=== PATIENT | female | born 1975 | race Caucasian/White ===

== ENCOUNTER 2018-03-22 20:52 | Emergency (ER) | payer OTHER ==
[2018-03-22 20:57] VITALS: BP 167/96
[2018-03-22] MEDS ORDERED: LEVO-3 PO (21:00)
--- NOTE | 2018-03-22 21:01 | ER Report ---
History and Physical Time Seen By MD: 20:59 HPI/ROS CHIEF COMPLAINT: Fever, sinus congestion, headache HISTORY OF PRESENT ILLNESS: 42-year-old female has been sick for 3-4 days with viral URI symptoms. She thinks she has a sinus infection. She's been feeling much worse over the last 24 hours. She is here from [place], [place] for a family reunion. She notes purulent green nasal drainage. She notes intermittent low-grade fevers. She she notes a dull headache. She denies photophobia or stiff neck. Patient notes a history of allergies. She's been taking [id number] medication without improvement. 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 REVIEW OF SYSTEMS: Respiratory: As above Cardiovascular: No chest pain, no palpitations. Gastrointestinal: No vomiting, no abdominal pain. Musculoskeletal: No back pain. Allergies: Coded Allergies: No Known Drug Allergies (Unverified , 03/22/18) Home Meds Active Scripts Prednisone 10 Mg Tab (PREDNISONE 10 MG TAB) 10 Mg Tablet, 10 MG PO QDAY Y for reduce sinus inflammation, #6 2 tabs daily for 2 days 1 tab daily for 2 days Prov:REINA PATEL DO 03/22/18 Cefuroxime Axetil (CEFUROXIME) 500 Mg Tablet, 500 MG PO BID for infection, #20 TAB Prov:REINA PATEL DO 03/22/18 Reported Medications Citalopram Hydrobromide (CITALOPRAM HBR) 20 Mg Tablet, 20 MG PO QDAY, #5 TAB 03/22/18 Simvastatin (SIMVASTATIN) 40 Mg Tablet, 40 MG PO HS, TAB 03/22/18 Zolpidem Tartrate (AMBIEN) 5 Mg Tablet, 1 TAB PO QHS, TAB 03/22/18 [metroprolol] No Conflict Check 03/22/18 Levothyroxine Sodium (LEVOTHYROXINE SODIUM) 100 Mcg Tablet, 100 MCG PO QDAY, TAB 03/22/18 Reviewed Nurses Notes: Yes Old Medical Records Reviewed: Yes Constitutional Vital Sign - Last 24 Hours 03/22/18 20:57 Temp 99.6 Pulse 77 Resp 16 B/P (MAP) 167/96 Pulse Ox 93 O2 Delivery Room Air Physical Exam General Appearance: The patient is alert, has no immediate need for airway protection and no current signs of toxicity. Mild distress, vital signs stable , afebrile, skin slight pale appearing, warm and dry HEENT: Pupils equal and round no injection. TMs normal, oropharynx with mild erythema, nasal passages with gross edema and purulent discharge Respiratory: Chest is non tender, lungs are clear to auscultation. No wheezing or rails Cardiac: regular rate and rhythm Gastrointestinal: Abdomen is soft and non tender, no masses, bowel sounds normal. Musculoskeletal: Neck: Neck is supple and non tender. No lymphadenopathy Extremities have full range of motion and are non tender. Skin: No rashes or lesions. DIFFERENTIAL DIAGNOSIS: After history and physical exam differential diagnosis was considered for sinusitis, bronchitis, otitis media, pharyngitis, upper respiratory infection, pneumonia, influenza Medical Decision Making ED Course/Re-evaluation ED Course Patient's admitted to an examination room. H&P is done. The dental diagnoses considered. On conical examination. Patient has gross appearance of clinical sinusitis. Patient's traveling on vacation. She's requesting any way to improve her overall condition. Patient be placed on prednisone and antibiotics for sinus infection. She is advised aggressive symptomatically management. Patient advised to follow-up with her primary care. Upon returning home to [place]. Decision to Disposition Date: Mar 22, 2018 Decision to Disposition Time: 21:10 Depart Departure Latest Vital Signs Vital Signs Date Time Temp Pulse Resp B/P (MAP) Pulse Ox O2 Delivery O2 Flow Rate FiO2 03/22/18 20:57 99.6 77 16 167/96 93 Room Air Impression: Primary Impression: Sinusitis Additional Impressions: Fever Fatigue Condition: Improved Disposition: HOME OR SELF-CARE New Scripts Prednisone 10 Mg Tab (PREDNISONE 10 MG TAB) 10 Mg Tablet 10 MG PO QDAY Y for reduce sinus inflammation, #6 2 tabs daily for 2 days 1 tab daily for 2 days Prov: REINA PATEL DO 03/22/18 Cefuroxime Axetil (CEFUROXIME) 500 Mg Tablet 500 MG PO BID for infection, #20 TAB Prov: REINA PATEL DO 03/22/18 Patient Instructions: Sinusitis (ED) Additional Instructions: Continue over the counter medication as before Follow-up with primary care physician upon returning home to [place] Problem Qualifiers Primary Impression: Sinusitis Sinusitis location: unspecified location Chronicity: acute Recurrence: not specified as recurrent Qualified Codes: J01.90 - Acute sinusitis, unspecified Additional Impressions: Fever Fever type: unspecified Qualified Codes: R50.9 - Fever, unspecified Fatigue Fatigue type: unspecified Qualified Codes: R53.83 - Other fatigue REINA PATEL DO Mar 22, 2018 21:01
[2018-03-22] MEDS ORDERED: metroprolol (21:05)
[2018-03-22] MEDS ORDERED: ZOLP-1 PO (21:05)
[2018-03-22] MEDS ORDERED: CITA-145 PO (21:05)
[2018-03-22] MEDS ORDERED: SIMV-54 PO (21:05)
[2018-03-22] MEDS ORDERED: CEFUROXIME AXETIL 250 MG TAB PO ONE (21:10)
[2018-03-22] MEDS ORDERED: predniSONE 20 MG TAB PO ONE (21:10)
[2018-03-22] MEDS ORDERED: ALBUTEROL SULFATE 90 MCG/ACT 8.5 GM HNH INH PRN (21:10)
[2018-03-22] MEDS ORDERED: PRED-1 PO (21:14)
[2018-03-22] MEDS ORDERED: CEFU500T10 PO (21:14)
== END 2018-03-22 21:34 | disposition home or self-care (01) ==
LOC: ER 21:06
DX: J01.90 Acute sinusitis, unspecified (principal); R50.9 Fever, unspecified; R53.83 Other fatigue
CPT/HCPCS: 94640; 99283; J7512